=== PATIENT | female | born 1945 | race Caucasian/White ===

== ENCOUNTER 2016-10-27 11:28 | Observation (INO) | payer MEDICARE ==
[~2016-10-27] VITALS: Ht 170.2 cm; Wt 73.9 kg
[2016-10-27] VITALS (7 sets, daily range): BP systolic 140–155; BP diastolic 48–77; PULSE 62–74; RESP 13–18; O2SAT 62–100
[~2016-10-27 11:28] MED LIST: GABA300C PO; IND20 PO; INSU100V3 SQ; METF1000 PO; NOV100I SQ; PHYT1CAP PO; PRI20 PO; ULTRAM50 MG PO; ZES20T PO
--- NOTE | 2016-10-27 11:34 | ED.REPORT ---
HPI-Syncope Date of Service Oct 27, 2016 ED Provider: Dr. Vela History of Present Illness: [place], felt dizzy, felt better after sitting. than syncope. no vomiting, no hx of syncope. woke up feeling fine but "felt funny the last couple of days" lives by self. diabetic primary care is brenda in [facility]. having memory issues, has had a head ache for the last 2 days, does not normally have a headache. took ibuprofen helped Patient is able to remember she had gastric bypass 1.5 years ago. Woke Saturday am with severe heartburn, has had minimal intake Sat, and Saturday. Went on the tour Saturday and passed out. Informed of likely skull fracture and free air. Likely transfer [place] [facility]. Nursing Notes Nursing Notes Reviewed: Yes Allergies: Coded Allergies: simvastatin (Verified Allergy, Severe, 10/27/16) RXN IS MYALGIA PT GETS ELEVATED LFTS Uncoded Allergies: STATINS (Allergy, Unknown, 06/23/12) Scheduled Gabapentin-Expunged Drug, Do Not Renew! (Neurontin-Expunged Drug, Do Not Renew! ) 300 Mg Capsule 600 MG PO HSP Insulin Aspart-Expunged Drug, Do Not Renew! (Novolog-Expunged Drug, Do Not Renew !) 100 Unit/1 Ml Vial UNIT SQ SLIDING SCALE PER INSULIN SLIDING SCALE Insulin Regular-Expunged Drug, Do Not Renew! (Novolin R-Expunged Drug, Do Not Renew!) 100 U/Ml Vial 25 U SQ QAM Insulin Regular-Expunged Drug, Do Not Renew! (Novolin R-Expunged Drug, Do Not Renew!) 100 U/Ml Vial 80 U SQ HS Lisinopril-Expunged Drug, Do Not Renew! (Lisinopril-Expunged Drug, Do Not Renew! ) 20 Mg Tablet 40 MG PO BID Metformin-Expunged Drug, Do Not Renew! (Metformin-Expunged Drug, Do Not Renew!) 1,000 Mg Tablet 1,000 MG PO BIDWM Omeprazole-Expunged Drug, Do Not Renew! (Omeprazole-Expunged Drug, Do Not Renew! ) 20 Mg Capcr 20 MG PO DAILY Phytosterol/Vit D3/ Fish Oil (Cholesterol Relief Softgel) 1 Each Capsule 2 TAB PO BID Propranolol-Expunged Drug, Do Not Renew! (Propranolol-Expunged Drug, Do Not Renew!) 20 Mg Tab 20 MG PO DAILY Tramadol-Expunged Drug, Do Not Renew! (Ultram-Expunged Drug, Do Not Renew!) 50 Mg Tab 50 MG PO Q6HP General Time Seen by Provider: 11:34 Chief Complaint Became unresponsive Hx Obtained From: Patient Onset Occurred: Just prior to arrival Symptom Duration: Since onset Location: : Scalp Quality: Painful Severity: Current: Mild Severity: Maximum: Mild Immunizations: All up to date Recent Healthcare: No recent doctor visit, No recent hospitalization Similar Sx Previous: No Past Medical History Past Medical History Reports: Diabetes mellitus (since late 1989), Denies: Asthma, Coronary artery disease Past Surgical History back surgery, rotater cuff, Reports: Appendectomy, Hysterectomy, Tonsillectomy Reports: Gastric bypass (1.5 years ago 10/27/2016) Smoking History Never Smoker Social History Alcohol Use: Denies alcohol use Drug Use: Denies drug use Occupation lives by self in a double wide mobile home 10/27/2016 Ambulatory Status Independent Review of Systems Basic Review of Systems : No dysuria, No frequency Allergy / Immune: No allergy Constitutional: Denies: Chills Eyes: Denies: Diplopia Respiratory: Denies: Dyspnea on exertion GI: Denies: Nausea, Vomiting Neurologic: Reports: Dizziness, Lightheaded, Syncope Complete sys rev & neg: except as marked. Physical Exam Initial Vital Signs Vital Signs (First) Date Time Temp Pulse Resp B/P Pulse Ox O2 Delivery O2 Flow Rate FiO2 10/27/16 11:37 36.1 67 17 140/48 100 Room Air Initial VS: Reviewed Head / Eyes: Normocephalic, PERRL ENT: Mucous membranes moist, Conjunctiva normal, No scleral icterus Abdomen / GI: Soft, Non-tender, No guarding, No rebound, No distention Upper Extremities: Vascular intact, Neuro intact, No swelling, No tenderness Skin: Warm, Dry, No cyanosis Psychiatric: Mood/affect normal, Behavior normal, Normal thought content General/Constitutional: Awake, Alert, No acute distress, Well appearing Respiratory / Chest: Breath sounds NL, Breath sounds = bilat, No respiratory distress, No rales, No rhonchi, No wheezing Cardiovascular: Heart rate NL, Regular rhythm, Heart sounds NL, No murmurs, Cap refill not delayed, Peripheral circulation NL Lower Extremity / Pelvis / MS: Atraumatic, Inspection NL, Full range of motion , No edema Neurologic: Oriented X3, Speech NL, No motor deficits, No sensory deficits, CN II - XII intact, Reflexes equal bilat, Cerebellar NL Interpretation & Diagnostics Lab Results Interpretation Result Diagram: 10/27/16 1151 10/27/16 1151 Test 10/27/16 11:51 10/27/16 11:58 White Blood Count 15.4th/mm3 (3.8-10.1) Red Blood Count 4.52mil/mm3 (3.90-5.20) Hemoglobin 12.7g/dL (12.0-15.6) Hematocrit 38.4% (35.0-46.0) Mean Corpuscular Volume 85.0fL (81-100) Mean Corpuscular Hemoglobin 28.1pg (27.0-35.0) Mean Corpuscular Hemoglobin Concent 33.1% (32.0-37.0) Red Cell Distribution Width 13.5% (12.3-15.4) Platelet Count 192bil/L (150-400) Neutrophils (%) (Auto) 73.3% (40-74) Lymphocytes (%) (Auto) 15.6% (14-46) Monocytes (%) (Auto) 9.4% (4-12) Eosinophils (%) (Auto) 1.0% (0-5) Basophils (%) (Auto) 0.3% (0-3) Sodium Level 139mEq/L (134-144) Potassium Level 3.1mEq/L (3.5-5.2) Chloride Level 99mEq/L (97-108) Carbon Dioxide Level 20mmol/L (18-29) Blood Urea Nitrogen 13mg/dL (8-27) Creatinine 0.97mg/dL (0.57-1.00) Estimat Glomerular Filtration Rate 81mL/min (>59) Glucose Level 186mg/dL (60-99) Calcium Level 9.7mg/dL (8.5-10.1) Total Bilirubin 1.0mg/dL (0.0-1.2) Aspartate Amino Transf (AST/SGOT) 11U/L (0-50) Alanine Aminotransferase (ALT/SGPT) 11U/L (0-32) Alkaline Phosphatase 74U/L (25-165) Troponin T 0.010ug/L (0.0-0.011) Total Protein 7.3g/dL (6.4-8.4) Albumin 3.9g/dL (3.4-5.0) Lactic Acid Level 2.6mmol/L (0.4-2.0) X-Ray Chest Interpretation Chest Xray Interpretation: IMPRESSION: I doubt but cannot exclude a minimal infiltrate in the medial segment of the right middle lobe anteriorly. There is an infiltrate posteriorly causing loss of definition of one of the hemidiaphragms in the lateral view. Dictated by: Luis A Luong M.D. on 10/27/2016 at 13:23 View: AP & lat Interpretation / Wet Read by: Interpret - Radiologist CT Head Interpretation IMPRESSION: In this head CT following trauma with scalp laceration in the right parietal area there is found to be intracranial air in the left temporal fossa. Source of air is not identified. Skull base fracture is not identified. No blood in the external auditory canals or abnormal density of the mastoids or sinuses is identified. Dictated by: Luis A Luong M.D. on 10/27/2016 at 12:18 Study: Head CT no contrast Interpretation / Wet Read by: Interpret - Radiologist Re-Eval/Medical Decision Med Decision/Clinical Course 70 year old female arrives by EMS for syncope which occured while [place]. Patient was intially reporting she had been feeling funny but could not remember why. After a short time her memory and composure improves. She is able to relate that she had gastric by pass 1.5 years ago and she woke Saturday am with severe heartburn. After checking on line she took some honey and went back to sleep. She has minimal intake on Saturday, and Saturday with nothing on Saturday. Chest x-ray does indicate a pneumonia. Head CT indicates free air but no sign of fracture. Care of patient is turned over to Dr. Alfonzo Morales Re-Evaluation/Progress #1: Time of Eval: 12:41 Patient Status: Condition improved Re-Evaluation/Progress Note: Recheck by Dr. Vela: Pt remembers feeling lightheaded and dizzy just before the syncopal episode, but does not remember actually losing consciousness. She still feels dizzy. She reports a hx of DM and HTN. Pt states that she had not been eating very much in the last few days due to acid reflux. Discussed plan for transfer to [facility]. Re-Evaluation/Progress #2: Time of Eval: 13:56 Patient Status: Condition improved Re-Evaluation/Progress Note: Discussed x ray results and plan for admission here. She understands and agrees. Consultation #1: Call Returned at: 12:44 Note: [facility]: They will speak with neurosurgery and then call back. Consultation #2: Consulted With: Neurosurgery Call Returned at: 13:31 Note: Repeat a CT in 4 hours and admit to our hospital for syncope. Counseled Regarding: Diagnosis, Lab results, Need for admission Discharge & Departure Disposition: ADMITTED TO HOSPITAL Discharge Condition All VS Reviewed: Yes Condition: Improved Referrals: Pam Decker PA-C (PCP) EDSupervising Provider for APC: Nickolas Vela MD Attestation Portions of this note were transcribed by Yadira Fatima. I, Dr. Vela personally performed the history, physical exam and medical decision-making; I reviewed and confirmed the accuracy of the information in the transcribed note. Signed by: Yeison Martinez, 10/27/2016 at 1500. copies to: Pam Decker PA-C, Sue ARNP Oct 27, 2016 11:34 YADIRA FATIMA Oct 27, 2016 12:54
[2016-10-27] MEDS ORDERED: 0.9% Sodium Chloride 1,000 ML IV ONE ×3 (11:45→19:55)
[2016-10-27 12:04] LABS: BASOPHILS % (AUTO) 0.3 % (0-3); MONOCYTES % (AUTO) 9.4 % (4-12); Mean Corpuscular Hemoglobin 28.1 pg (27.0-35.0); NEUTROPHILS % (AUTO) 73.3 % (40-74); Platelet Count 192 bil/L (150-400)
[2016-10-27 12:13] LABS: TROPONIN T 0.01 ug/L (0.0-0.011)
--- NOTE | 2016-10-27 12:32 | DRSVH ---
PROCEDURE: CT BRAIN WITHOUT CONTRAST ([id number]) INDICATIONS: syncope TECHNIQUE: Noncontrast 4.5 mm thick angled axial sections acquired from the foramen magnum to the vertex, with c oronal reformats. COMPARISON: None. FINDINGS: Image quality: Excellent. Sinuses and mastoids are clear. I do not identify a basal skull fracture. At bone settings images ser ies 2 image 7 and 8 there is intracranial air in the left temporal fossa laterally. This is seen on t he reconstructions as well. No other intracranial air is seen. No intravascular air is seen. No evide nce for blood or subdural or subarachnoid abnormality is seen otherwise. There is a subcutaneous laceration of the right parietal scalp. IMPRESSION: In this head CT following trauma with scalp laceration in the right parietal area there i s found to be intracranial air in the left temporal fossa. Source of air is not identified. Skull base fracture is not identified. No blood in the external tom tory canals or abnormal density of the mastoids or sinuses is identified. Dictated by: Luis A Luong M.D. on 10/27/2016 at 12:18 Approved by: Luis A Luong M.D. on 10/27/2016 at 12:30 the ER clinician Tierney Phoenix was called with this information
[2016-10-27] MEDS ORDERED: Pantoprazole 4 mg/mL 10 mL Inj IVPUSH ONE (12:40)
--- NOTE | 2016-10-27 13:28 | DRSVH ---
PROCEDURE: X-RAY CHEST, TWO VIEWS ([id number]) INDICATIONS: syncope TECHNIQUE: 2 views of the chest were acquired. COMPARISON: [facility], , CHEST 2VW, 07/28/2014, 10:10. FINDINGS: Surgical changes and devices: patient monitor leads are seen over the chest. Lungs and pleura: No pleural effusions or pneumothorax. Lungs are clear except for potential minima l increased density in the medial segment right middle lobe. There is a lower lobe infiltrate causin g loss of definition of the posterior aspect of one of the hemidiaphragms. Mediastinum: Mediastinal contours are normal. Heart size is normal. Bones and chest wall: No suspicious bony abnormalities. Soft tissues appear unremarkable. IMPRESSION: I doubt but cannot exclude a minimal infiltrate in the medial segment of the right middle lobe anteriorly. There is an infiltrate posteriorly causing loss of definition of one of the hemidiaphragms in the lat eral view. Dictated by: Luis A Luong M.D. on 10/27/2016 at 13:23 Approved by: Luis A Luong M.D. on 10/27/2016 at 13:25
[2016-10-27] MEDS ORDERED: Azithromycin Inj 500 MG in Dextrose 5% 250 ML IV ONE (13:55)
[2016-10-27] MEDS ORDERED: cefTRIAXone Inj 2,000 MG in Dextrose 5% Minibag Plus 50 ML IV ONE (13:55)
[2016-10-27] MEDS ORDERED: Ondansetron 2 mg/mL 2 mL Inj IVPUSH PRN (14:15)
[2016-10-27] MEDS ORDERED: Alum-Mag Hydrox-Simeth 30 mL Suspension PO PRN ×2 (14:15→19:55)
--- NOTE | 2016-10-27 16:42 | DRSVH ---
PROCEDURE: CT BRAIN WITHOUT CONTRAST ([id number]) INDICATIONS: f/u pneumocephalus TECHNIQUE: Noncontrast 4.5 mm thick angled axial sections acquired from the foramen magnum to the vertex, with c oronal reformats. COMPARISON: [facility], CT, CT BRAIN WO CON, 10/27/2016, 12:12. FINDINGS: Image quality: Good CSF spaces: Basal cisterns are patent. No extra-axial fluid collections. There continues to be some air in an abnormal location. It previously was in the left temporal fossa e is now moved superiorly over the lateral aspect of the left temporal lobe on series 3 image 18. Thi s also not thought to be a small particle of air in the left cavernous sinus possibly near the right side of the sella. There also small particles of air along the medial aspect of the left temporomandi bular joint suggesting possible fracture in that area. The ventricles are symmetric in size and shape. Brain: No intracranial bleeds or masses. There is cerebral volume loss for age, with resultant vent ricular and sulcal prominence. There are periventricular and deep white matter chronic small vessel ischemic changes. There is intracranial internal carotid artery atherosclerosis. Skull and face: No fracture of the skull base is seen. No collections of fluid in the regions of air identified. Calvarium and visualized facial bones appear intact, without suspicious lesions. Sinuses: Visualized sinuses and mastoids are clear. IMPRESSION: Continued small particles of intracranial air in patient status post fall and right parie gillian scalp laceration. The appearance would be suspicious for skull base fracture although one is not identified. Dictated by: Luis A Luong M.D. on 10/27/2016 at 16:29 Approved by: Luis A Luong M.D. on 10/27/2016 at 16:40
[2016-10-27] MEDS ORDERED: Lidocaine-Epi-Tetracaine Solution 3 mL Syringe TOPICAL ONE (16:55)
[2016-10-27] MEDS ORDERED: LISI-567 PO (18:10)
[2016-10-27] MEDS ORDERED: PHYT1CAP PO (18:11)
--- NOTE | 2016-10-27 18:17 | NUR ---
Admission Patient admitted to the floor at 1727. Admission questions and Med list accomplished by this RN. Patient complained of 5/10 headache and complained of nausea. Patient given 4mg of Zofran. Vitals - t-37, bp-154/77, p-65, rr-18, o2-99RA. Oriented patient to the room, put bed in lowest position and call light within reach.
--- NOTE | 2016-10-27 19:26 | PCM.HPMED ---
Subjective Date of Service Oct 27, 2016 Primary Provider: Admitting Physician: Jovan Fregoso Primary Care Physician: Ralf Lane MD Attending Physician: Jovan Fregoso Chief Complaint: syncope History of Present Illness: 70 year old female with history of hypertension, diabetes mellitus and diabetic neuropathy who is also 18 months post gastric bypass surgery with about 120 lb weight loss since then presents today with an acute episode of syncope. Patient notes that because of a severe gastric reflux 3 days ago she had cut back her oral intake by about half since than after doing a "google search". This morning she did not eat or drink anything as she was rushing to make an appointment for touring a [place]. As she was walking with the tour she felt lightheaded and dizzy and sat down. After few minutes and feeling better she stood up to join the rest of the group but the next thing she remembers was being on the ground. According the bystanders she had passed out and hit her head on the ground. There is no report of seizure type activity, bowel or urine incontinence. She denies any prior history of syncope and denies any associated CP, SOB, or palpitations today. In ED patient's head CT was notable for evidence of "intracranial air in the left temporal fossa" without any evidence of fracture although she did have a right temporal laceration and bleeding. According to the ED attending patient' s CT scan was reviewed with neurosurgery at [facility] who recommended repeat head CT in 4 hours and noted that if there was increase in the size of the air to transfer the patient and otherwise if no significant change they advised against transferring the patient noting no need for surgical intervention. Workup in the ED also including a CXR which could not rule out pneumonia and so patient received a dose of IV Ceftriaxone and Azithro. Review of Systems: Constitutional: Negative, except as otherwise mentioned in the history above. Ophthalmologic: Negative, except as otherwise mentioned in the history above. Cardiovascular: Negative, except as otherwise mentioned in the history above. Respiratory: Negative, except as otherwise mentioned in the history above. Gastrointestinal: Negative, except as otherwise mentioned in the history above. Genitourinary: Negative, except as otherwise mentioned in the history above. Musculoskeletal: Negative, except as otherwise mentioned in the history above. Neurological: Negative, except as otherwise mentioned in the history above. Psychiatric: Negative, except as otherwise mentioned in the history above. Hematologic/Lymphatic: Negative, except as otherwise mentioned in the history above. Allergic/Immunologic: Negative, except as otherwise mentioned in the history above. Allergies Coded Allergies: simvastatin (Verified Allergy, Severe, 10/27/16) RXN IS MYALGIA PT GETS ELEVATED LFTS Uncoded Allergies: STATINS (Allergy, Unknown, 06/23/12) Home Medications Lisinopril 20 Mg Tablet 20 Mg PO BID 30 Days Phytosterol/Vit D3/ Fish Oil 1 Each Capsule 2 Each PO BID Exam Vital Signs & I/O Vital Sign- Last 8 Hours Date Time Temp Pulse Resp B/P Pulse Ox O2 Delivery O2 Flow Rate FiO2 10/27/16 17:31 37.0 65 18 154/77 99 Room Air 10/27/16 17:14 36.7 67 14 147/49 100 Room Air 10/27/16 15:47 36.7 67 14 147/49 100 Room Air 10/27/16 14:34 36.7 74 13 146/50 100 Room Air 10/27/16 13:35 36.5 68 15 149/51 100 Room Air 10/27/16 11:37 36.1 67 17 140/48 100 Room Air Lab & Micro Results Laboratory Tests Test 10/27/16 11:51 10/27/16 11:58 White Blood Count 15.4th/mm3 (3.8-10.1) Red Blood Count 4.52mil/mm3 (3.90-5.20) Hemoglobin 12.7g/dL (12.0-15.6) Hematocrit 38.4% (35.0-46.0) Mean Corpuscular Volume 85.0fL (81-100) Mean Corpuscular Hemoglobin 28.1pg (27.0-35.0) Mean Corpuscular Hemoglobin Concent 33.1% (32.0-37.0) Red Cell Distribution Width 13.5% (12.3-15.4) Platelet Count 192bil/L (150-400) Neutrophils (%) (Auto) 73.3% (40-74) Lymphocytes (%) (Auto) 15.6% (14-46) Monocytes (%) (Auto) 9.4% (4-12) Eosinophils (%) (Auto) 1.0% (0-5) Basophils (%) (Auto) 0.3% (0-3) Sodium Level 139mEq/L (134-144) Potassium Level 3.1mEq/L (3.5-5.2) Chloride Level 99mEq/L (97-108) Carbon Dioxide Level 20mmol/L (18-29) Blood Urea Nitrogen 13mg/dL (8-27) Creatinine 0.97mg/dL (0.57-1.00) Estimat Glomerular Filtration Rate 81mL/min (>59) Glucose Level 186mg/dL (60-99) Calcium Level 9.7mg/dL (8.5-10.1) Total Bilirubin 1.0mg/dL (0.0-1.2) Aspartate Amino Transf (AST/SGOT) 11U/L (0-50) Alanine Aminotransferase (ALT/SGPT) 11U/L (0-32) Alkaline Phosphatase 74U/L (25-165) Troponin T 0.010ug/L (0.0-0.011) Total Protein 7.3g/dL (6.4-8.4) Albumin 3.9g/dL (3.4-5.0) Lactic Acid Level 2.6mmol/L (0.4-2.0) Microbiology 10/27/16 Blood Culture, Received Pending Result Diagram: 10/27/16 1151 10/27/16 1151 PMH 1. Obesity (resolved) s/p gastric bypass surgery in 2015 2. Diabetes mellitus reportedly resolved after weight from gastric bypass surgery 3. Diabetic neuropathy 4. Hypertension Surgical History 1. Gastric bypass surgery 2. Lumbar fusion 3. Left knee replacement Family History Mother with breast cancer Father with cardiac bypass in his 70's Social History Hx Alcohol Use: No Hx Substance Use: No Smoking Status: Never Smoker Exam Vital Signs Vital Sign - Last Date Time Temp Pulse Resp B/P Pulse Ox O2 Delivery O2 Flow Rate FiO2 10/27/16 17:31 37.0 65 18 154/77 99 Room Air General: Alert, Oriented X3, Cooperative, No Acute Distress Head: Other (head wrapped with bandage) Eyes: PERRLA, EOMI, Scleral Anicteric Nose: Mucous Membr Moist/[place] Mouth: Mucous Membr Moist/[place] Neck: Supple Chest & Lungs: Chest Wall Normal, Clear to auscultation & percussion Cardiovascular: Regular Rate/Rhythm Pulses: NL carotid, radial, femoral, DP, PT Abdomen: Non-tender, Non-distended, Normoactive bowel tones, Soft Extremities: No cyanosis/clubbing/edma bilat Neurological: Grossly Neurologically Intact, Cranial Nerves 2-12 Intact, Normal Speech, Strength Normal 4/4 ext, Sensation Intact (grossly) Lymphatic: Other Lymph Nodes (no significant lymphadenpathy) Additional Information: Psych: Calm, appropriate Lab and Diagnostics Result Diagram: 10/27/16 1151 10/27/16 1151 X-Rays, CTs and MRIs Date of Service: 10/27/16 1144 PROCEDURE: X-RAY CHEST, TWO VIEWS ([id number]) IMPRESSION: I doubt but cannot exclude a minimal infiltrate in the medial segment of the right middle lobe anteriorly. There is an infiltrate posteriorly causing loss of definition of one of the hemidiaphragms in the lateral view. Dictated by: Luis A Luong M.D. on 10/27/2016 at 13:23 Approved by: Luis A Luong M.D. on 10/27/2016 at 13:25 Date of Service: 10/27/16 1144 PROCEDURE: CT BRAIN WITHOUT CONTRAST ([id number]) IMPRESSION: In this head CT following trauma with scalp laceration in the right parietal area there is found to be intracranial air in the left temporal fossa. Source of air is not identified. Skull base fracture is not identified. No blood in the external auditory canals or abnormal density of the mastoids or sinuses is identified. Dictated by: Luis A Luong M.D. on 10/27/2016 at 12:18 Approved by: Luis A Luong M.D. on 10/27/2016 at 12:30 the ER clinician Tierney Phoenix was called with this information Date of Service: 10/27/16 1600 PROCEDURE: CT BRAIN WITHOUT CONTRAST ([id number]) IMPRESSION: Continued small particles of intracranial air in patient status post fall and right parietal scalp laceration. The appearance would be suspicious for skull base fracture although one is not identified. Dictated by: Luis A Luong M.D. on 10/27/2016 at 16:29 Approved by: Luis A Luong M.D. on 10/27/2016 at 16:40 Assessment & Plan 70 year old female with history of hypertension, diabetes mellitus and diabetic neuropathy who is also 18 months post gastric bypass surgery with about 120 lb weight loss since then presents with an acute episode of syncope. # Acute syncope, present on admission. - Likely due to orthostatic hypotension from dehydration and decreased PO intake in past few days - Check EKG - Observe on Tele - Cycle Trop - Check Echo - IVF - Check orthostatics in AM - MRI brain given report of recurrent "dizziness" in ED - PT consult # Intracranial air noted on CT brain. Unclear acuity. Present on admission - Per ED report's discussion with [facility] neurosurgery no further intervention recommended at this time - Brain MRI as noted above - Followup clinically # Acute right temporal laceration. present on admission - Further followup and suture removal likely as outpatient. # Acute hypokalemia. Present on admission - Replete and followup # Leukocytosis. Likely acute from stress of syncope and head lac. Present on admission - Strongly doubt pneumonia given no correlating clinical finding - Followup repeat labs - No further Abx at this time - Check procalcitonin # History of hypertension - Continue with home dose Lisinopril # History of diabetes, reportedly resolved after recent weight loss - ISS while inpatient - Check HgA1C Dispo: likely home tomorrow if above workup negative and unremarkable GI Prophylaxis: Proton Pump Inhibitor VTE Prophylaxis: SCDs Resuscitation Status: CPR: Attempt Resuscitation (discussed and verified with patient) Jovan Fregoso Oct 27, 2016 19:26
[2016-10-27] MEDS ORDERED: Polyethylene Glycol (PEG) 17 Gm Powder PO PRN (19:55)
[2016-10-27] MEDS ORDERED: Potassium Chloride 20 mEq SR Tablet PO ONE (20:10)
[2016-10-27] MEDS: Insulin Human REGular 300 Unit/3 mL Inj SUBQ SCH (22:00)
[2016-10-27] MEDS: Ondansetron 2 mg/mL 2 mL Inj IVPUSH PRN (22:00)
[2016-10-28] VITALS (10 sets, daily range): BP systolic 135–195; BP diastolic 63–73; PULSE 58–77; RESP 18–20; O2SAT 94–99
--- NOTE | 2016-10-28 06:16 | NUR ---
Nausea/Pain/tele Pt c/o of nausea and headache 11/22. Pt given Zofran 8mg IVP and Tylenol 650mg;meds effective per pt. Pt continues with Kerlix wrap around head which is C/D/I. No direct observation of head wound at this time. K+ 3.1 and 20Meq of Potassium given po. Lactic acid 2.6 fluids infusing and labs to be redrawn this AM. Tele: SR67 /SB 50sd per court monitor. Pt denies shortness of breath and chest pain. 1PA with ambulation for safety due to earlier c/o dizziness. Pt Refused to wear SCDs at this time. Educated pt on risks and benefits. Care continues.
[2016-10-28 06:48] LABS: BASOPHILS % (AUTO) 0.3 % (0-3); EOSINOPHILS % (AUTO) 1.4 % (0-5); MONOCYTES % (AUTO) 8.3 % (4-12); Mean Corpuscular Hemoglobin 27.6 pg (27.0-35.0); Mean Corpuscular Volume 85.9 fL (81-100); NEUTROPHILS % (AUTO) 74.6 % (40-74); Platelet Count 130 bil/L (150-400)
[2016-10-28 07:04] LABS: INR 1.12 ratio
[2016-10-28 07:30] LABS: Magnesium 1.7 mg/dL (1.6-2.6)
[2016-10-28] MEDS: Insulin Human REGular 300 Unit/3 mL Inj SUBQ SCH ×4 (07:30→21:09)
[2016-10-28] MEDS: Pantoprazole 20 mg ER24 Tablet PO SCH (08:14)
[2016-10-28] MEDS: Ondansetron 2 mg/mL 2 mL Inj IVPUSH PRN (12:08)
--- NOTE | 2016-10-28 12:58 | DRSVH ---
PROCEDURE: MRI STROKE PROTOCOL ([id number]) Pre- and post-contrast brain MRI, non-contrast brain MR angiogram, pre- and postcontrast neck MR sreekanth ogram INDICATIONS: Syncope and dizziness, and CT scanning after trauma one day ago identified a small degr ee of pneumocephalus but did not identify brain parenchymal injury or intracranial hemorrhage. TECHNIQUE: Brain: Noncontrast axial T1 spin echo, axial T2 fast spin echo, sagittal and axial FLAIR, coronal T2 fast spin echo, axial gradient echo, axial diffusion and ADC through the brain. After the administr ation of contrast, axial 3D VIBE of the cranial vasculature and brain. Brain MRA: Non-contrast 3-D time of flight MR angiogram, with multiple hujybub-jncvcnkrf-kbjbszlzqq (MIP) reformats performed. Neck MRA: Axial and sagittal TruFISP through the neck. Coronal dynamic MR angiogram during administ ration of contrast in the arterial and venous phases, with 3-dimenstional yywytur-aprpchwqo-vlmzknhfj n (MIP) reformats constructed from subtraction images. COMPARISON: [facility], CT, CT BRAIN WO CON, 10/27/2016, 12:12. [facility], CT, CT BRAIN WO CON, 10/27/2016, 16:26. FINDINGS: Image quality: Excellent. BRAIN: CSF spaces: Ventricles are normal in size and shape. Basal cisterns are patent. No extra-axial flu id collections. Brain: No intracranial mass effects but there is evidence of a slight degree of bilateral subdural h emorrhage. Additionally, a slight degree of subarachnoid hemorrhage can be identified. This is most easily visualized on sagittal and axial FLAIR imaging but also can be seen as elevated signal in the subdural space on precontrast T1 scanning, and also postcontrast mild enhancement of the dural surfa sage bilaterally symmetric, reactive to the blood products present. Mohamud-white matter interface is no rmal. Additionally, there is a slight degree of subarachnoid hemorrhage within the cortical sulci of the temporal lobes bilaterally also below the threshold for detection by CT scanning recently perfor med. Diffusion weighted images show no acute ischemic insults. Brainstem appears normal. Normal in travascular flow voids are present. No abnormal intracranial enhancement. Skull and face: Calvarial marrow signal is normal. Orbits appear normal. Sinuses: Sinuses and mastoids are clear. BRAIN MR ANGIOGRAM: Anterior circulation: Intracranial internal carotid arteries are normal in size and enhancement. Th e flow within the paired anterior cerebral arteries is normal and symmetric. The flow within the mid dle cerebral arteries is normal and symmetric. The anterior communicating artery is seen. No stenos es, occlusions, or aneurysms. Posterior circulation: The visualized portions of the vertebral arteries demonstrate normal caliber, and join to form a normal appearing basilar artery. The flow within the posterior cerebral arteries is normal and symmetric. No stenoses, occlusions, or aneurysms. NECK MR ANGIOGRAM: Carotids: Great vessels demonstrate a conventional anatomy as they arise from the aortic arch. The origins of the common carotid arteries appear patent. The courses of both common carotid arteries ar e normal as are the calibers. The bifurcation regions appear normal bilaterally. The proximal inter nal carotid arteries demonstrate normal course and a mildly reduced caliber with approximately a 50% stenosis at the origin of the right internal carotid artery and slightly stenosis in that area on the left. Posterior circulation: The origins of the vertebral arteries appear patent. More superior portions of both vertebral arteries demonstrate normal course and caliber, and join to form a normal appearing basilar artery. Miscellaneous: Subclavian arteries appear patent. Pre-contrast images through the neck show no soft tissue abnormalities. IMPRESSION: BRAIN MRI: No brain parenchymal injury found, no mass or stroke identified. There is, however, evid ence of a slight degree of blood products within the subdural space symmetric bilaterally. This is s hown by mild elevated subdural fluid signal, and contrast enhancement along the dural surfaces. Ther e also is a slight degree of subarachnoid hemorrhage best seen by FLAIR imaging, as elevated signal i nterdigitating within the cortical sulci along the temporal regions bilaterally. The blood products are not detectable on the CT scanning that was performed initially and then as fol lowup, in this patient with posttraumatic mild pneumocephalus. BRAIN MR ANGIOGRAM: Normal intracranial MR angiogram. NECK MR ANGIOGRAM: Slight stenosis involves the origin of each proximal internal carotid artery, rig ht slightly greater than left. The degree of stenosis is at or below 50% level. The estimate of stenosis included in the report of the imaging study was calculated using the NASCET method Dictated by: Augusto Mendez M.D. on 10/28/2016 at 12:39 Approved by: Augusto Mendez M.D. on 10/28/2016 at 12:56
--- NOTE | 2016-10-28 13:04 | NUR ---
KUSUM explained and signed. Copy of NOE given to pt.
--- NOTE | 2016-10-28 14:50 | NUR ---
ORTHOS/PT/MRI Patient is negative for orthopedic hypotension (laying 135/64, sitting 159/72, and standing 161/73). PT in and patient tested positive for BPPV on her right side, PT treated her and will reassess and treat again tomorrow if necessary. MRI images pushed to [facility] per MD request, concern about possible subdural/subachroid bleed. Patient c/o head ache 8/10, Tylenol given, BP was 195/72, MD made aware, 8mg Zofran given for nausea.
--- NOTE | 2016-10-28 16:20 | NUR ---
Evaluation completed. Please go to "Notes" then click on "Assessments and Notes" (bottom left corner of screen). Then select appropriate discipline tab on top of screen.
--- NOTE | 2016-10-28 18:19 | PCM.PNMED ---
Subjective Date of Service Oct 28, 2016 Subjective reports dizziness and headache earlier but says feels better now Exam Vital Signs Vital Sign - Last Date Time Temp Pulse Resp B/P Pulse Ox O2 Delivery O2 Flow Rate FiO2 10/28/16 17:29 36.8 77 20 145/63 98 Room Air Intake and Output 10/27/16 10/27/16 10/28/16 Cumulative From/Thru 15:00 23:00 07:00 10/27/16 11:37 - 10/28/16 06:39 Intake Total 2000 ml 240 ml 1180 ml 3420 ml Output Total 0 ml 1550 ml 1550 ml Balance 2000 ml 240 ml -370 ml 1870 ml Intake Oral 240 ml 473 ml 713 ml IV Total 2000 ml 707 ml 2707 ml Output Urine Total 0 ml 1550 ml 1550 ml Exam General: Alert, Oriented X3, Cooperative, No Acute Distress Head: Kerlix wrap around head which is C/D/I Eyes: PERRLA, EOMI, Scleral Anicteric Nose: Mucous Membr Moist/[place] Mouth: Mucous Membr Moist/[place] Neck: Supple Chest & Lungs: Chest Wall Normal, Clear to auscultation bilat Cardiovascular: Regular Rate/Rhythm Pulses: NL carotid, radial, femoral, DP, PT Abdomen: Non-tender, Non-distended, Normoactive bowel tones, Soft Extremities: No cyanosis/clubbing/edema bilat Neurological: Grossly Neurologically Intact, Cranial Nerves 2-12 Intact, Normal Speech Psych: Calm, appropriate IVs and Medications Medications Reviewed: Medications were reviewed in detail Lab and Diagnostics Result Diagram: 10/28/16 0625 10/28/16 0625 X-Rays, CTs and MRIs Date of Service: 10/27/16 1144 PROCEDURE: X-RAY CHEST, TWO VIEWS ([id number]) IMPRESSION: I doubt but cannot exclude a minimal infiltrate in the medial segment of the right middle lobe anteriorly. There is an infiltrate posteriorly causing loss of definition of one of the hemidiaphragms in the lateral view. Dictated by: Luis A Luong M.D. on 10/27/2016 at 13:23 Approved by: Luis A Luong M.D. on 10/27/2016 at 13:25 Date of Service: 10/27/16 1144 PROCEDURE: CT BRAIN WITHOUT CONTRAST ([id number]) IMPRESSION: In this head CT following trauma with scalp laceration in the right parietal area there is found to be intracranial air in the left temporal fossa. Source of air is not identified. Skull base fracture is not identified. No blood in the external auditory canals or abnormal density of the mastoids or sinuses is identified. Dictated by: Luis A Luong M.D. on 10/27/2016 at 12:18 Approved by: Luis A Luong M.D. on 10/27/2016 at 12:30 the ER clinician Tierney Phoenix was called with this information Date of Service: 10/27/16 1600 PROCEDURE: CT BRAIN WITHOUT CONTRAST ([id number]) IMPRESSION: Continued small particles of intracranial air in patient status post fall and right parietal scalp laceration. The appearance would be suspicious for skull base fracture although one is not identified. Dictated by: Luis A Luong M.D. on 10/27/2016 at 16:29 Approved by: Luis A Luong M.D. on 10/27/2016 at 16:40 Assessment & Plan 70 year old female with history of hypertension, diabetes mellitus and diabetic neuropathy who is also 18 months post gastric bypass surgery with about 120 lb weight loss since then presents with an acute episode of syncope. # Acute syncope, present on admission. - Likely due to orthostatic hypotension from dehydration and decreased PO intake in past few days - EKG - Observe on Tele - Cycle of Trop negative - Check Echo - MRI brain with questionable subdural and subarachnoid hemorrhage. Reviewed with neurosurgery from [facility] on 10/28/16 (same surgeon who had reviewed her head CT on 10/27). He doubted the diagnoses of hemorrhage and does not recommend any further intervention regarding the head imaging findings at this time. - Continue PT # Intracranial air noted on CT brain. Unclear acuity. Present on admission - Per ED report's discussion with [facility] neurosurgery no further intervention recommended at this time - Brain MRI and review of the films with neurosurgery as noted above - Followup clinically # Acute right temporal laceration. present on admission - Further followup likely as outpatient - Wound care consult tomorrow # Acute hypokalemia. Present on admission - Resolved after Replete # Leukocytosis. Likely acute from stress of syncope and head lac. Present on admission. Resolved. - Strongly doubt pneumonia given no correlating clinical finding - No further Abx at this time # History of hypertension, ongoing and poorly controlled - Continue with home dose Lisinopril - Continue with pain control # History of diabetes, reportedly resolved after recent weight loss - ISS while inpatient - Check HgA1C Dispo: likely home tomorrow pending better BP control and further PT eval GI Prophylaxis: Proton Pump Inhibitor VTE Prophylaxis: SCDs VTE Mechanical Devices: Intermittant Pneumatic CD Resuscitation Status: CPR: Attempt Resuscitation (discussed and verified with patient) Jovan Fregoso Oct 28, 2016 18:19 Jovan Fregoso Oct 28, 2016 18:19
[2016-10-29 00:55] VITALS: BP 181/68; PULSE 61; RESP 18; O2SAT 98
[2016-10-29 05:31] VITALS: BP 182/78; PULSE 67; RESP 18; O2SAT 98
--- NOTE | 2016-10-29 06:38 | NUR ---
BP, d/c concerns: BP has been elevated 180s/60s tonight despite HS dose of Lisinopril. No pain reported. Only had dizziness one time, briefly, when sitting on the edge of the bed and looking down; resolved within a minute without intervention. Has been getting up to the bathroom independently. Pt has concerns about discharge and dressing change. Currently has a kerlix wrap around top of head. Dressing c/d/i. No current order for wound care/dressing changes, pt states she will talk about this with the doctor today.
[2016-10-29 07:02] LABS: BASOPHILS % (AUTO) 0.5 % (0-3); EOSINOPHILS % (AUTO) 2.3 % (0-5); MONOCYTES % (AUTO) 10.4 % (4-12); Mean Corpuscular Hemoglobin 27.9 pg (27.0-35.0); Mean Corpuscular Volume 86.4 fL (81-100); NEUTROPHILS % (AUTO) 66.9 % (40-74); Platelet Count 155 bil/L (150-400)
[2016-10-29] MEDS: Insulin Human REGular 300 Unit/3 mL Inj SUBQ SCH ×2 (07:30→12:35)
[2016-10-29] MEDS: Pantoprazole 20 mg ER24 Tablet PO SCH (07:58)
[2016-10-29 09:04] VITALS: BP 161/69; PULSE 68; RESP 18; O2SAT 98
[2016-10-29 09:04] LABS: APPEARANCE,URINE HAZY (CLEAR,HAZY); COLOR,URINE STRAW (YELLOW); OCCULT BLOOD,URINE NEGATIVE (NEGATIVE); PH,URINE 5.5 (5.0-8.0)
[2016-10-29 10:24] VITALS: PULSE 84
--- NOTE | 2016-10-29 11:37 | DRSVH ---
[facility] [address] [place] [address] Echocardiogram Report Name: THERESA KIRKLAND MStudy Date: 10/29/2016 Height: 67 in Hospital Exam Location: [facility] Weight: 163 lb Gender: Female BSA: 1.9 m2 : 1945 Age: 70 yrs BP: 182/78 mmHg Reason For Study: Syncope Ordering Physician: HOSPITALIST [facility] Performed By: Racheal Butterfield Referring Physician: Apollo Navarrete Interpretation Summary The ejection fraction is estimated to be 60-65%. There is no significant valvular heart disease. Procedure: A two-dimensional transthoracic echocardiogram with color flow and Doppler was performed. The study quality was technically adequate. Comparison is made with the echocardiogram of 04/20/2014. The patient was in normal sinus rhythm during the exam. Left Ventricle: The left ventricle is normal in size, wall thickness, and systolic function without any focal wall motion abnormalities. The ejection fraction is estimated to be 60-65%. Left ventricular wall motion is normal. Spectral Doppler of the mitral inflow yields an E/A ratio that is between 0.8 and 1.5. Right Ventricle: The right ventricle is normal in size and function. Atria: Both atria are normal in size. There is no Doppler evidence for an interatrial shunt. Mitral Valve: There is mild mitral annular calcification. The mitral valve leaflets appear thickened, but open well. There is trace mitral regurgitation. Aortic Valve: The aortic valve opens well. No aortic regurgitation is present. Tricuspid Valve: The tricuspid valve is normal in structure and function. Pulmonary artery pressures cannot be estimated because of the lack of a measurable TR jet velocity. Pulmonic Valve: The pulmonic valve is not well visualized. Great Vessels: The aortic root is normal size. The ascending aorta could not be visualized. The aortic arch is normal in size. The IVC is of normal diameter and collapses less than 50% with a sniff. This suggests a right atrial pressure of 8 mm Hg. Pericardium/ Pleura There is no pericardial effusion. MMode/2D Measurements & Calculations LVIDd: 4.8 cm RA long axis LVOT diam: 2.0 cm LVIDs: 2.9 cm LA A2 area: 17.2 cm Ao root diam FS: 40.5 % LA A4 area: 17.0 cm RA area EPSS: 0.49 cm LA length (vol) Ao Arch Diam (Prox IVSd: 1.1 cm : 15.7 cm Trans): 2.3 cm LVPWd: 0.72 cm LA vol: 47.8 ml RA vol LA vol index : 48.0 ml RA : 25.9 mm2 IVC diam: 2.0 cm LV abdullahi. diameter/BSA LV sys. diameter/BSA RVD1 (basal) RVD2 (mid): 2.5 cm (cm/m^2): 2.6 (cm/m^2): 1.6 TAPSE: 2.5 cm Doppler Measurements & Calculations Ao V2 max MV E max alejandro MV E/A: 0.88 PA V2 max : 142.8 cm/sec : 91.7 cm/sec Med Peak E' Alejandro : 116.6 cm/sec Ao max P.2 mmHg MV A max alejandro PA mean PG Ao mean P.0 mmHg : 103.7 cm/sec E/E' med: 11.1 LVOT Max Alejandro Lat Peak E' Alejandro PA Accel Time : 104.3 cm/sec : 0.10 sec E/E' lat: 9.7 PAOLA(I,D): 2.5 cm E/e' average sev ratio: 0.79 MV dec time: 0.16 sec Ao V2 mean LV V1 max PG PA V2 mean : 95.8 cm/sec : 85.4 cm/sec Ao V2 VTI: 30.6 cmLV V1 VTI: 24.1 cm PAOLA(V,D): 2.3 cm2 PAOLA indexed to BSA (cm^2/m^2): 1.4 Electronically signed by: Kendall Mayo on Reading Physician:10/29/2016 11:37 AM
[2016-10-29] MEDS ORDERED: OXYC1TAB24 PO (12:25)
--- NOTE | 2016-10-29 12:32 | PCM.DIMED ---
Discharge Instructions Date of Service Oct 29, 2016 Dates of Hospitalization Oct 27, 2016 at 14:29 Discharge Diagnosis Discharge Diagnosis # Acute syncope, present on admission. - Likely due to orthostatic hypotension from dehydration and decreased oral intake # MRI brain with questionable subdural and subarachnoid hemorrhage. Intracranial air noted on CT brain. Unclear acuity or significance. Present on admission - Consider followup with primary care provider and repeat head imaging in about one month to ensure resolution or stability. # Acute right temporal laceration. present on admission # Acute hypokalemia. Present on admission. Resolved # Acute Leukocytosis. Likely from stress of syncope and head laceration. Present on admission. Resolved. - Question of pneumonia raised on admission now ruled out clinically. # History of hypertension, ongoing and somewhat poorly controlled # History of diabetes - HgA1C 7.0 Diet Discharge Diet: Low fat, Low Sodium, Heart Healthy Activity Discharge Activity: No restrictions Call your provider Call your provider for: Fever or Chills, Shortness of breath, Bleeding, Chest pain, Weakness (unilateral) Patient Instructions Patient Instructions Seek immediate medical attention if any new or worsening signs or symptoms occur. Consider followup with primary care provider and repeat head imaging in about one month to ensure resolution or stability. Follow-up plan 1. Followup with primary care provider within about one week. Follow-up Provider: Ralf Lane MD, Masoud Oct 29, 2016 12:32
--- NOTE | 2016-10-29 13:42 | NUR ---
Social Work note - Initial assessment/discharge Martha Orozco is a 70 yr old admitted for syncope. EMR reviewed: Pt has [facility] [place]. Her PCP is Dr Bourne. Readmit is 0. DPOA in EMR. see attached CM initial assessment SHOT LIGHTER met with pt - introduced D/C planning and explain SW role. Pt lives at home in [place] alone. She is independent at baseline - No DME, Drives. She anticipates going home with no needs. SHOT LIGHTER provided support, provided your discharge planning checklist and will follow if needs arise. Plan: Home with family in [place]> TOMAS Burton Addendum: 10/29/16 at 1344 by WAQAS DESAI Amended: Links added.
[2016-10-29 13:52] VITALS: BP 171/76; PULSE 62; RESP 18; O2SAT 98
--- NOTE | 2016-10-29 15:00 | NUR ---
Head wound Removed old dressing. L. parietal head wound (abrasion) was dry. No laceration. Abrasion site was cleaned and new dressing (non-adhesive dressing with outer Kerlix wrap) applied. Instructed pt. no hair washing for 2 to 3 days. Follow -up with Dr. Lane for further instructions. Dressing supplies given to pt.
--- NOTE | 2016-10-29 17:54 | PCM.DC.MED ---
Discharge Summary Date of Service Oct 29, 2016 Dates of Hospitalization Date of Hospital Admission Oct 27, 2016 at 14:29 Date of Discharge: Oct 29, 2016 Providers: Admitting Physician: Jovan Mancera Primary Care Physician: Ralf Lane MD Attending Physician: Jovan Mancera Diagnosis at Time of Discharge Diagnosis at Time of Discharge # Acute syncope, present on admission. - Likely due to orthostatic hypotension from dehydration and decreased oral intake # MRI brain with questionable subdural and subarachnoid hemorrhage. Intracranial air noted on CT brain. Unclear acuity or significance. Present on admission - Consider followup with primary care provider and repeat head imaging in about one month to ensure resolution or stability. # Acute right temporal laceration. present on admission # Acute hypokalemia. Present on admission. Resolved # Acute Leukocytosis. Likely from stress of syncope and head laceration. Present on admission. Resolved. - Question of pneumonia raised on admission now ruled out clinically. # History of hypertension, ongoing and somewhat poorly controlled # History of diabetes - HgA1C 7.0 Procedures XRay, CTs & MRIs Date of Service: 10/27/16 1144 PROCEDURE: X-RAY CHEST, TWO VIEWS ([id number]) IMPRESSION: I doubt but cannot exclude a minimal infiltrate in the medial segment of the right middle lobe anteriorly. There is an infiltrate posteriorly causing loss of definition of one of the hemidiaphragms in the lateral view. Dictated by: Luis A Luong M.D. on 10/27/2016 at 13:23 Approved by: Luis A Luong M.D. on 10/27/2016 at 13:25 Date of Service: 10/27/16 1144 PROCEDURE: CT BRAIN WITHOUT CONTRAST ([id number]) IMPRESSION: In this head CT following trauma with scalp laceration in the right parietal area there is found to be intracranial air in the left temporal fossa. Source of air is not identified. Skull base fracture is not identified. No blood in the external auditory canals or abnormal density of the mastoids or sinuses is identified. Dictated by: Luis A Luong M.D. on 10/27/2016 at 12:18 Approved by: Luis A Luong M.D. on 10/27/2016 at 12:30 the ER clinician Tierney Phoenix was called with this information Date of Service: 10/27/16 1600 PROCEDURE: CT BRAIN WITHOUT CONTRAST ([id number]) IMPRESSION: Continued small particles of intracranial air in patient status post fall and right parietal scalp laceration. The appearance would be suspicious for skull base fracture although one is not identified. Dictated by: Lui sA Luong M.D. on 10/27/2016 at 16:29 Approved by: Luis A Luong M.D. on 10/27/2016 at 16:40 Date of Service: 10/28/16 0800 PROCEDURE: MRI STROKE PROTOCOL ([id number]) Pre- and post-contrast brain MRI, non-contrast brain MR angiogram, pre- and postcontrast neck MR angiogram IMPRESSION: BRAIN MRI: No brain parenchymal injury found, no mass or stroke identified. There is, however, evidence of a slight degree of blood products within the subdural space symmetric bilaterally. This is shown by mild elevated subdural fluid signal, and contrast enhancement along the dural surfaces. There also is a slight degree of subarachnoid hemorrhage best seen by FLAIR imaging, as elevated signal interdigitating within the cortical sulci along the temporal regions bilaterally. The blood products are not detectable on the CT scanning that was performed initially and then as followup, in this patient with posttraumatic mild pneumocephalus. BRAIN MR ANGIOGRAM: Normal intracranial MR angiogram. NECK MR ANGIOGRAM: Slight stenosis involves the origin of each proximal internal carotid artery, right slightly greater than left. The degree of stenosis is at or below 50% level. The estimate of stenosis included in the report of the imaging study was calculated using the NASCET method Dictated by: Augusto Mendez M.D. on 10/28/2016 at 12:39 Approved by: Augusto Mendez M.D. on 10/28/2016 at 12:56 Cardiac Echo Impression Date of Service: 10/29/16 1821 Echocardiogram Report Interpretation Summary The ejection fraction is estimated to be 60-65%. There is no significant valvular heart disease. Electronically signed by: Kendall Mayo on Reading Physician:10/29/2016 11:37 AM Brief History 70 year old female with history of hypertension, diabetes mellitus and diabetic neuropathy who is also 18 months post gastric bypass surgery with about 120 lb weight loss since then presents today with an acute episode of syncope. Patient notes that because of a severe gastric reflux 3 days ago she had cut back her oral intake by about half since than after doing a "google search". This morning she did not eat or drink anything as she was rushing to make an appointment for touring a newly built alf. As she was walking with the tour she felt lightheaded and dizzy and sat down. After few minutes and feeling better she stood up to join the rest of the group but the next thing she remembers was being on the ground. According the bystanders she had passed out and hit her head on the ground. There is no report of seizure type activity, bowel or urine incontinence. She denies any prior history of syncope and denies any associated CP, SOB, or palpitations today. In ED patient's head CT was notable for evidence of "intracranial air in the left temporal fossa" without any evidence of fracture although she did have a right temporal laceration and bleeding. According to the ED attending patient' s CT scan was reviewed with neurosurgery at [facility] who recommended repeat head CT in 4 hours and noted that if there was increase in the size of the air to transfer the patient and otherwise if no significant change they advised against transferring the patient noting no need for surgical intervention. Workup in the ED also including a CXR which could not rule out pneumonia and so patient received a dose of IV Ceftriaxone and Azithro. Hospital Course # Acute syncope, present on admission. - Likely due to orthostatic hypotension from dehydration and decreased PO intake in past few days - EKG unremarkable. - Cycle of Trop negative - Echo unremarkable as noted above - MRI brain with questionable subdural and subarachnoid hemorrhage. Reviewed with neurosurgery from [facility] on 10/28/16 (same surgeon who had reviewed her head CT on 10/27). He doubted the diagnoses of hemorrhage and does not recommend any further intervention regarding the head imaging findings at this time. - Continue PT # Intracranial air noted on CT brain. Unclear acuity. Present on admission - Per ED report's discussion with [facility] neurosurgery no further intervention recommended at this time - Brain MRI and review of the films with neurosurgery as noted above - Followup clinically as outpatient # Acute right temporal laceration. present on admission - Further followup as outpatient - Continue with wound care. # Acute hypokalemia. Present on admission - Resolved after Replete # Leukocytosis. Likely acute from stress of syncope and head lac. Present on admission. Resolved. - Strongly doubt pneumonia given no correlating clinical finding - No further Abx at this time # History of hypertension, ongoing and poorly controlled - Continue with home dose Lisinopril - Continue with pain control # History of diabetes, reportedly resolved after recent weight loss - ISS while inpatient - HgA1C 7 by day of d/c denies any lightheaded or dizzy. Seen by PT and cleared for discharge. Exam Vital Signs (Last) Date Time Temp Pulse Resp B/P Pulse Ox O2 Delivery O2 Flow Rate FiO2 10/29/16 13:52 36.7 62 18 171/76 98 Room Air Exam General: Alert, Oriented X3, Cooperative, No Acute Distress Head: Kerlix wrap around head which is C/D/I Eyes: PERRLA, EOMI, Scleral Anicteric Nose: Mucous Membr Moist/[place] Mouth: Mucous Membr Moist/[place] Neck: Supple Chest & Lungs: Chest Wall Normal, Clear to auscultation bilat Cardiovascular: Regular Rate/Rhythm Pulses: NL carotid, radial, femoral, DP, PT Abdomen: Non-tender, Non-distended, Normoactive bowel tones, Soft Extremities: No cyanosis/clubbing/edema bilat Neurological: Grossly Neurologically Intact, Cranial Nerves 2-12 Intact, Normal Speech Psych: Calm, appropriate Test 10/27/16 11:51 10/28/16 06:25 10/28/16 11:54 10/29/16 06:35 Hemoglobin A1c 7.0% (4.8-5.6) Total Bilirubin 1.0mg/dL (0.0-1.2) Aspartate Amino Transf (AST/SGOT) 11U/L (0-50) Alanine Aminotransferase (ALT/SGPT) 11U/L (0-32) Alkaline Phosphatase 74U/L (25-165) Total Protein 7.3g/dL (6.4-8.4) Albumin 3.9g/dL (3.4-5.0) Prothrombin Time 12.0sec (8.1-12.5) Prothromb Time International Ratio 1.12ratio Activated Partial Thromboplast Time 27.6sec (22.8-33.0) Lactic Acid Level 0.6mmol/L (0.4-2.0) Magnesium Level 1.7mg/dL (1.6-2.6) Thyroid Stimulating Hormone (TSH) 0.476uIU/mL (0.450-4.500) Troponin T 0.010ug/L (0.0-0.011) White Blood Count 6.6th/mm3 (3.8-10.1) Red Blood Count 3.83mil/mm3 (3.90-5.20) Hemoglobin 10.7g/dL (12.0-15.6) Hematocrit 33.1% (35.0-46.0) Mean Corpuscular Volume 86.4fL (81-100) Mean Corpuscular Hemoglobin 27.9pg (27.0-35.0) Mean Corpuscular Hemoglobin Concent 32.3% (32.0-37.0) Red Cell Distribution Width 13.3% (12.3-15.4) Platelet Count 155bil/L (150-400) Neutrophils (%) (Auto) 66.9% (40-74) Lymphocytes (%) (Auto) 19.3% (14-46) Monocytes (%) (Auto) 10.4% (4-12) Eosinophils (%) (Auto) 2.3% (0-5) Basophils (%) (Auto) 0.5% (0-3) Sodium Level 142mEq/L (134-144) Potassium Level 3.6mEq/L (3.5-5.2) Chloride Level 105mEq/L (97-108) Carbon Dioxide Level 21mmol/L (18-29) Blood Urea Nitrogen 10mg/dL (8-27) Creatinine 0.69mg/dL (0.57-1.00) Estimat Glomerular Filtration Rate 120mL/min (>59) Glucose Level 127mg/dL (60-99) Calcium Level 8.6mg/dL (8.5-10.1) Procalcitonin 0.09ng/mL (0.00-0.08) Test 10/29/16 07:45 Urine Color Straw (YELLOW) Urine Appearance Hazy (CLEAR,HAZY) Urine pH 5.5 (5.0-8.0) Urine Specific [place] 1.020 (1.003-1.035) Urine Protein Negativemg/dL (NEG,TRACE) Urine Glucose (UA) Negativemg/dL (NEGATIVE) Urine Ketones 15mg/dL (NEGATIVE) Urine Occult Blood Negative (NEGATIVE) Urine Nitrite Negative (NEGATIVE) Urine Bilirubin Negative (NEGATIVE) Urine Urobilinogen 4.0mg/dL (NORMAL) Urine Leukocyte Esterase Negative (NEGATIVE) Urine RBC 0-2/hpf (0-2) Urine WBC 0-5/hpf (0-5) Urine Epithelial Cells Occasional/hpf (NONE-MOD) Urine Crystals None seen (NONE SEEN) Urine Bacteria None/hpf (NONE-FEW) Urine Hyaline Casts None/lpf (NONE) Urine Granular Casts None seen (NONE SEEN) Urine Waxy Casts None seen (NONE SEEN) Urine Red Blood Cell Casts None seen (NONE SEEN) Urine White Blood Cell Casts None seen (NONE SEEN) Urine Mucus None seen (None Seen) Urine Trichomonas None seen (NONE SEEN) Urine Yeast None (NONE SEEN) Urinalysis Comment None Urine Culture Reflexed Not indicated Discharge Medications Discharge Medications Lisinopril (Lisinopril) 20 Mg Tablet 20 MG PO BID (Reported) Phytosterol/Vit D3/ Fish Oil (Cholesterol Relief Softgel) 1 Each Capsule 2 EACH PO BID (Reported) As needed oxyCODONE-Acetaminophen 5-325 mg (oxyCODONE-Acetaminophen 5-325 mg) 1 Each Tablet 1-2 TAB PO Q6H PRN PRN For Pain Prescribed by: JOVAN MANCERA MD Followup Plan Disposition: Home Follow-up plan 1. Followup with primary care provider within about one week. Discharge Diet: Low fat, Low Sodium, Heart Healthy Discharge Activity: No restrictions Patient Instructions Seek immediate medical attention if any new or worsening signs or symptoms occur. Consider followup with primary care provider and repeat head imaging in about one month to ensure resolution or stability. Follow-up Provider: Ralf Lane MD Time spent 40 min copies to: Ralf Lane MD, Mas[place] Oct 29, 2016 17:54
== END 2016-10-29 15:15 | disposition home or self-care (01) ==
LOC: EDBD 11:28 → EDUNIT# 11:28 → SED 11:28 → MPC 14:29
PROVIDERS: ADMIT Internal Medicine; ATTEND Internal Medicine
DX: R55 Syncope and collapse (principal); S01.81XA Laceration without foreign body of other part of head, initial encounter; W18.30XA Fall on same level, unspecified, initial encounter; Y93.01 Activity, walking, marching and hiking; Y92.149 Unspecified place in prison as the place of occurrence of the external cause; E87.6 Hypokalemia; D72.829 Elevated white blood cell count, unspecified; I10 Essential (primary) hypertension; E11.40 Type 2 diabetes mellitus with diabetic neuropathy, unspecified; Z98.84 Bariatric surgery status; Z79.4 Long term (current) use of insulin; Z79.84 Long term (current) use of oral hypoglycemic drugs
CPT/HCPCS: 36415; 70450; 70549; 70553; 71020; 80048; 80053; 81000; 83036; 83605; 83735; 84145; 84443; 84484; 85025; 85610; 85730; 87040; 93005; 96361; 96365; 96375; 96376; 97163; 97530; 99285; A9585; C8929; G0378; J0456; J0696; J1815; J2405; J3490; J7030

== ENCOUNTER → 2016-12-06 | Day surgery (SDC) | payer MEDICARE ==
[~2016-12-06] VITALS: Ht 170.2 cm; Wt 69.0 kg
[~2016-12-06] MED LIST changes: +B12/1TAB3 PO; +CA C1TAB83 PO; +CHOL10008 PO; -GABA300C PO; +GLUC100016 PO; -IND20 PO; -INSU100V3 SQ; +Ketamine 10 mg/mL 20 mL Inj ONE; +LISI-567 PO; +Lactated Ringer's 1,000 ML IV ONE; +Lactated Ringer's 1,000 ML IV SCH; -METF1000 PO; +MetoCLOpramide 5 mg/mL 2 mL Inj IVPUSH PRN; -NOV100I SQ; +OMEG1CAP56 PO; +OXYC1TAB24 PO; +Ondansetron 2 mg/mL 2 mL Inj IVPUSH PRN; -PRI20 PO; +Propofol 10,000 mCg/mL 20 mL Inj ONE; -ULTRAM50 MG PO; -ZES20T PO
--- NOTE | 2016-12-06 07:46 | PCM.HPANE ---
Patient Data Surgeon Admitting Provider: Attending Provider:Franck Crawford MD Primary Care Physician:Ralf Lane MD Other Provider:Assoc,Ashley Anesthesia Reason for Visit GERD Ht/WT & BMI Body Mass Index Allergies Coded Allergies: simvastatin (Verified Allergy, Severe, 10/27/16) RXN IS MYALGIA PT GETS ELEVATED LFTS Adhesives (Verified Allergy, Unknown, 12/04/16) Past Anesthesia History Anesthesia History: Denies:: Abnormal Airway, Anesthesia Reactions, Difficult Intubation, Fam Anesthesia Reaction, Fam Malignant Hypertherm, Malignant Hyperthermia Diabetes History Hx Diabetes?: Yes Type of Diabetes: Type II Glycemic Control: Insulin & Oral Medication MRSA MRSA: No Medications Hypertension Medication: Yes Home Meds Incl Beta David: No Active Scripts oxyCODONE-Acetaminophen 5-325 mg 1 Each Tablet1-2 Tab PO Q6H PRN For Pain #14 TABLET Ref 0 Prov:JaviersyedamainorJovan 10/29/16 Reported Medications [place]-3 Fatty Acids/Fish Oil ([place] 3 1,000 mg Softgel)1 Each Capsule1 Each PO DAILY 12/04/16 Cholecalciferol (Vitamin D3) (Vitamin D3)1,000 Unit Tab.chew1,000 Unit PO DAILY 12/04/16 Glucosamine Sulfate 2Kcl (Glucosamine)1,000 Mg Tablet1,000 Mg PO DAILY 12/04/16 Ca Carbonate/Vitamin D3/Vit K (Calcium + D Soft Chewable Tab)1 Each Tab.chew1 Each PO DAILY 12/04/16 B12/Levomefolate Calcium/B-6 (Folbic Rf Tablet)1 Each Tablet1 Each PO DAILY 12/04/16 Phytosterol/Vit D3/ Fish Oil (Cholesterol Relief Softgel)1 Each Capsule2 Each PO BID 10/27/16 Lisinopril 20 Mg Ctkyne23 Mg PO BID 30 Days Ref 0 10/27/16 History History of ENT Problems?: Yes HEENT History: Positive for:: Dysphagia Sinus Problem TMJ Denies:: Abnormal Airway Cataracts Hearing Problem Denture Type: None Teeth Condition: Within Normal Limits Hx of Heart Problems?: Yes Cardiovascular History: Positive for:: Hypertension Denies:: Cardiac Surgery Chest Pain Congestive Heart Failure Heart Murmur Irregular Heartbeat Pacemaker Hx of Respiratory Problem?: Yes Respiratory History: Positive for:: Cough (STATES FROM DRAINAGE OF SINUSES) Dyspnea Denies:: Asthma Oxygen Administration Tuberculosis Use of C-PAP Machine (HX OF SNORING, STATES DOESNT SLEEP WELL AND UP EVERY 2 HRS) Hx Neurologic Problems?: Yes Neurological History: Positive for:: Headaches (due to fall) Denies:: Seizures Hx of GI Problems?: Yes Hx of Problems?: Yes HX of Peritoneal Dialysis: No Female Hx: Denies:: Currently Skin History: Denies:: History Skin Disorders? (LOWER LEG ITCH, RASH THAT COMES AND GOES) Pressure Ulcers Hx Musculoskeletal Problems?: Yes Hx of Psycho/Social Problems?: No Psycho Social History: Denies:: Bipolar Disorder Hx Depression Hx Surgeries?: Yes (TONSILS, TUBAL, HYSTER, APPY, SINUS, R ROTATOR CUFF, EYES, BI KNEE ARTHROSC) Hx Any Other Health Problems?: Yes Other History: Positive for:: Hospitalization (BACK SURG FOR MISSING VERT 1997 ) Thyroid Disease (CIRCLED YES ON HEALTH QUESTIONAIRRE AND PUT 1960) Denies:: Cancer History Blood Transfusions: Denies:: Blood Transfusions Hx Diabetes: Yes Hx Alcohol Use: NoHx Substance Use: No Smoking Status: Never Smoker Stop/Bang Treated for Sleep Apnea?: No Do You Have a CPAP Machine?: No Risk Assessment Category Category 1A: Patient has history of documented sleep apnea, and HAS NOT received any narcotic, sedative or anesthesia administration during this stay. Category 1B: Patient has history of documented sleep apnea, and HAS received any narcotic , sedative or anesthesia administration during this stay Category 2: Patient has SUSPECTED Obstructive Sleep Apnea, and HAS received any narcotic , sedative or anesthesia administration during this stay. Category 3: Patient has SUSPECTED Obstructive Sleep Apnea and HAS NOT received narcotic, sedative or anesthesia administration during this stay. Category 4: Outpatient in Procedural Areas with known sleep apnea or who screen positive for High Risk via the STOP/BANG questionnaire. Exam Exam General Appearance: Alert, Oriented X3, Cooperative, No Acute Distress HEENT/AIRWAY: MP 2 Lungs: Clear to Auscultation, Normal Air Movement Heart: Exam Unremarkable, Regular Rate/Rhythm, No Murmurs/Rubs/Gallops Plan Impression Patient chart reviewed, patient interviewed and anesthestic plan with risks, benefits, and alternatives discussed, and informed consent obtained. ASA Physical Status: ASA2 Mod Systemic Disease Anesthetic Plan: MAC Bene/Risks/Altern/Consents: Yes HP Complete Prior to Induction: Yes Lenny Dubose MD Dec 06, 2016 07:46
[2016-12-06 12:36] VITALS: BP 147/73; PULSE 62; RESP 16; O2SAT 100
--- NOTE | 2016-12-06 14:05 | PCM.ENDEGD ---
EGD Date of Service: Dec 06, 2016 Physician Franck Crawford MD Pre Procedure Diagnosis: Reflux Post Procedure Dx & Findings: Normal upper GI Procedure Esophagogastroduodenoscopy PROCEDURE IN DETAIL: Sedation by anesthesiology After proper sedation, Olympus video endoscope was inserted into patient's mouth and esophagus was successfully intubated. Scope introduced esophagus. Esophagus showed normal shiny whitish mucosa consistent with squamous cell component. Z line was intact at 40 cm from the incisors. The residual stomach showed normal shiny mucosa without any ulcer mass erosion. Because of the small stomach, unable to retroflex. Scope further advanced to the afferent and effernt loops of small bowel. Small bowel revealed normal villous structures with normal appearing folds without any mass ulcer erosion. Impression Unremarkable other than postsurgical changes as described above. Recommendation Follow up in GI clinic with Sara Cerda. Presedation Assessment Risks and Benefits Informed consent was obtained from the patient after all risks and benefits including but not limited to drug reaction, infection, pain, bleeding, perforation, as well as alternatives were discussed. Patient monitoring Continuous pulse oximetry, cardiac monitoring, blood pressure monitoring, IV access, and oxygen at 2L per nasal cannula. Complications There were no periprocedural complications identified. Post Procedure Plan Post Procedure Recommendations 1. Restrict activities today. 2. Resume normal activities in the morning. 3. Resume medications. 4. GERD behavioral modification: - Avoid fatty, acidic, spicy, large meals - Do not lie down after meals - Do not eat or drink anything for at least 2 1/2 hours before going to bed at night - Discontinue tobacco and alcohol - Decrease or avoid caffeine - Avoid chocolate and mints - Decrease weight - Avoid aspirin and non steroidal anti-inflammatory agents (NSAID) such as Aleve, Advil, Mobic, Naproxen, Ibuprofen, etc 5. Add proton pump inhibitor. Take 30 minutes before 1st meal of the day. 6. Patient informed of normal post procedure side effects as bloating, drowsiness, blood streaking in the stool 7. If gastric biopsy reveal H.pylori, continue with appropriate treatment 8. If small bowel biopsy reveals celiac, continue with appropriate treatment 9. Please don't hesitate to call me with any questions Franck Crawford MD Dec 06, 2016 14:05
[2016-12-06 14:08] VITALS: BP 168/92; PULSE 89; RESP 16; O2SAT 99
[2016-12-06 14:16] VITALS: BP 173/102; PULSE 59; RESP 16; O2SAT 100
[2016-12-06 14:25] VITALS: BP 183/85; PULSE 60; RESP 16; O2SAT 100
--- NOTE | 2016-12-07 09:23 | PCM.ANEP1 ---
Post Anesthesia PACU Phase 1 Assessment Anesthetic Administered: MAC Level of Alertness: Awake, talking Pain: No Nausea or Vomiting: No CV Function & Hydration Stable: Yes Airway Device: none Oxygen Delivery: Nasal Cannula Lungs: Clear to Auscultation, Normal Air Movement PACU Phase 2 Assessment Complications: No Follow up Care: No Patient Instructions Provided: N/A Lenny Dubose MD Dec 07, 2016 09:23
== END | disposition home or self-care (01) ==
LOC: END 01:26
PROVIDERS: ATTEND Internal Medicine
DX: K21.9 Gastro-esophageal reflux disease without esophagitis (principal); E78.5 Hyperlipidemia, unspecified; G47.33 Obstructive sleep apnea (adult) (pediatric); I10 Essential (primary) hypertension; E11.42 Type 2 diabetes mellitus with diabetic polyneuropathy; D50.9 Iron deficiency anemia, unspecified; E66.9 Obesity, unspecified; Z68.24 Body mass index [BMI] 24.0-24.9, adult
CPT/HCPCS: 43235; J2704; J7120